=== PATIENT | female | born 1950 | race American Indian/Alaskan Native ===

== ENCOUNTER 2016-07-31 12:13 | Outpatient (CLI) | payer MEDICARE | END 2016-07-31 12:14 | disposition home or self-care (01) | LOC: CARD 12:13 | PROVIDERS: ATTEND Internal Medicine | DX: R07.9 Chest pain, unspecified (principal) | CPT/HCPCS: 93005; 93010 ==

== ENCOUNTER 2019-04-27 12:41 | Inpatient (IN) | payer MEDICARE ==
[2019-04-27 14:51] LABS: Basophils # (Auto) 0.1 K/mm3 (0.0-0.1); Eosinophils # (Auto) 0.1 K/mm3 (0.0-0.4); Eosinophils % (Auto) 1.5 % (0.0-4.3); Hematocrit 46.5 % (30.3-42.9); Lymphocytes # (Auto) 4.3 K/mm3 (1.2-5.4); Lymphocytes % (Auto) 45.4 % (13.4-35.0); Mean Corpuscular HGB Conc 32 % (30-34); Mean Corpuscular Volume 86 fl (79-97); Monocytes # (Auto) 0.7 K/mm3 (0.0-0.8); Monocytes % (Auto) 7.6 % (0.0-7.3); Platelet Count 187 K/mm3 (140-440); Red Blood Count 5.41 M/mm3 (3.65-5.03); Red Cell Distribution Width 13.9 % (13.2-15.2)
[2019-04-27 15:08] LABS: Alanine Aminotransferase 25 units/L (7-56); Albumin 4.6 g/dL (3.9-5); BUN/Creatinine Ratio 20; Blood Urea Nitrogen 20 mg/dL (7-17); Calcium 9.5 mg/dL (8.4-10.2); Hemolysis Index 13
--- NOTE | 2019-04-27 15:16 | XRay Report ---
CHEST 2 VIEWS INDICATION / CLINICAL INFORMATION: R/O PNEUMONIA. COMPARISON: None available. FINDINGS: SUPPORT DEVICES: None. HEART / MEDIASTINUM: No significant abnormality. LUNGS / PLEURA: No significant pulmonary or pleural abnormality. No pneumothorax. ADDITIONAL FINDINGS: No significant additional findings. IMPRESSION: 1. No acute findings. Signer Name: Wilmar Talbot MD Signed: 04/27/2019 3:11 PM Workstation Name: [id number]
[2019-04-27] MEDS: IPRATROPIUM/ALBUTEROL SULFATE 3 ML AMPUL.NEB IH SCH ×2 (17:39→20:41)
[2019-04-27] MEDS ORDERED: IBUPROFEN 800 MG TAB PO PRN (19:06)
[2019-04-27] MEDS ORDERED: ACETAMINOPHEN 325 MG TAB PO PRN (19:09)
[2019-04-27] MEDS ORDERED: ONDANSETRON 4 MG/2 ML INJ IV PRN ×2 (19:09→19:12)
[2019-04-27] MEDS: cefTRIAXone/NS 2 GM/100 ML 2 GM/100 ML BAG IV SCH (19:21)
[2019-04-27] MEDS: HYDROmorphone 1 MG/1 ML INJ IV PRN ×2 (19:27→22:38)
[2019-04-27] MEDS ORDERED: ALBUTEROL 2.5 MG/3 ML NEBU IH PRN (20:46)
[2019-04-27] MEDS ORDERED: cloNIDine 0.2 MG TAB PO SCH (22:00)
[2019-04-27] MEDS: AZITHROMYCIN 500 MG in SODIUM CHLORIDE 0.9% 250ML 250 ML IV SCH (22:27)
[2019-04-27] MEDS: NICOTINE 14 MG/24 HR PATCH TD SCH (22:31)
[2019-04-27] MEDS: ALPRAZolam 0.5 MG TAB PO SCH (22:31)
[2019-04-27] MEDS: FAMOTIDINE 20 MG TAB PO SCH (22:32)
[2019-04-27] MEDS: CYCLOBENZAPRINE 10 MG TAB PO PRN (22:32)
[2019-04-27] MEDS: cloNIDine 0.2 MG TAB PO SCH ×2 (22:51→23:01)
--- NOTE | 2019-04-28 09:04 | History and Physical Report ---
History of Present Illness Date of examination: 04/27/19 Date of admission: 04/27/19 13:32 Chief complaint: Fever and cough for 1 week History of present illness: Admittewd from office for Cough and fever of 1 week not responding to Outpatient treatment Past History Past Medical History: hypertension, hyperlipidemia Past Surgical History: No surgical history Social history: lives with family, smoking, full code Family history: hypertension Medications and Allergies Allergies Allergy/AdvReac Type Severity Reaction Status Date / Time No Known Allergies Allergy Verified 08/17/14 13:25 Home Medications Medication Instructions Recorded Confirmed Last Taken Type Acetaminophen/Codeine 1 tab PO Q6H PRN #14 tab 08/17/14 04/27/19 04/27/19 08:00 Rx [Acetaminophen-Codeine #3 TAB] Cyclobenzaprine [Flexeril 10mg] 10 mg PO TID PRN #20 tablet 08/17/14 04/27/19 Unknown Rx Ibuprofen [Motrin] 800 mg PO Q8HR PRN 04/27/19 04/27/19 04/27/19 08:00 History Spironolactone [Aldactone] 200 mg PO QDAY 04/27/19 04/27/19 04/27/19 08:00 History Verapamil ER [Calan Sr] 240 mg PO DAILY 04/27/19 04/27/19 04/27/19 08:00 History cloNIDine [Catapres] 0.2 mg PO BID 04/27/19 04/27/19 04/27/19 08:00 History Estrogen,Lindy/Me-Testosterone 1 each PO DAILY 04/28/19 04/28/19 04/27/19 08:00 History [Estrogen-Methyltestos F.s. Tab] Active Meds: Active Medications Acetaminophen (Tylenol) 650 mg PO Q4H PRN PRN Reason: Pain MILD(1-3)/Fever >100.5/HEART Acetaminophen/Codeine Phosphate (Tylenol #3) 1 tab PO Q4H PRN PRN Reason: Pain, Moderate (4-6) Albuterol (Proventil) 2.5 mg IH Q4HRT PRN PRN Reason: Shortness Of Breath Albuterol/Ipratropium (Duoneb *Not For Prn Use*) 1 ampul IH QIDRT [facility] Last Admin: 04/27/19 20:41 Dose: 1 ampul Documented by: Alprazolam (Xanax) 0.5 mg PO BID [facility] Last Admin: 04/27/19 22:31 Dose: 0.5 mg Documented by: Clonidine HCl (Catapres) 0.2 mg PO Q8H [facility] Last Admin: 04/27/19 23:01 Dose: 0.2 mg Documented by: Cyclobenzaprine HCl (Flexeril) 10 mg PO TID PRN PRN Reason: Muscle Spasm Last Admin: 04/27/19 22:32 Dose: 10 mg Documented by: Enoxaparin Sodium (Enoxaparin) 40 mg SUB-Q QDAY [facility] Famotidine (Pepcid) 20 mg PO BID [facility] Last Admin: 04/27/19 22:32 Dose: 20 mg Documented by: Hydromorphone HCl (Dilaudid) 1 mg IV Q3H PRN PRN Reason: Pain , Severe (7-10) Last Admin: 04/27/19 22:38 Dose: 1 mg Documented by: Ceftriaxone Sodium (Rocephin/Ns 2 Gm/100 Ml) 2 gm in 100 mls @ 200 mls/hr IV Q24HR [facility]; Protocol Last Admin: 04/27/19 19:21 Dose: 200 mls/hr Documented by: Azithromycin 500 mg/ Sodium (Chloride) 250 mls @ 250 mls/hr IV Q24HR [facility]; Protocol Stop: 05/01/19 10:59 Last Admin: 04/27/19 22:27 Dose: 250 mls/hr Documented by: Nicotine (Habitrol) 14 mg TD QDAY [facility] Last Admin: 04/27/19 22:31 Dose: 14 mg Documented by: Ondansetron HCl (Zofran) 4 mg IV Q3H PRN PRN Reason: Nausea And Vomiting Sodium Chloride (Sodium Chloride Flush Syringe 10 Ml) 10 ml IV BID [facility] Last Admin: 04/27/19 22:40 Dose: 10 ml Documented by: Sodium Chloride (Sodium Chloride Flush Syringe 10 Ml) 10 ml IV PRN PRN PRN Reason: LINE FLUSH Sodium Chloride (Sodium Chloride Flush Syringe 10 Ml) 10 ml IV BID [facility] Sodium Chloride (Sodium Chloride Flush Syringe 10 Ml) 10 ml IV PRN PRN PRN Reason: LINE FLUSH Spironolactone (Aldactone) 200 mg PO QDAY [facility] Verapamil HCl (Calan Sr) 240 mg PO DAILY [facility] Review of Systems All systems: negative Cardiovascular: shortness of breath, dyspnea on exertion Respiratory: cough, cough with sputum, dyspnea on exertion, congestion, wheezing Exam - Constitutional Vitals: Temp Pulse Resp BP Pulse Ox 97.9 F 82 20 129/72 97 04/28/19 01:53 04/28/19 01:53 04/28/19 01:53 04/28/19 01:53 04/28/19 01:53 General appearance: Present: no acute distress, mild distress, well-nourished - EENT Eyes: Present: PERRL ENT: hearing intact, clear oral mucosa - Neck Neck: Present: supple, normal ROM - Respiratory Respiratory effort: normal Respiratory: bilateral: diminished, rhonchi, wheezing - Cardiovascular Heart rate: 88 Rhythm: regular Heart Sounds: Present: S1 & S2. Absent: rub, click - Extremities Extremities: pulses symmetrical, No edema Peripheral Pulses: within normal limits - Abdominal General gastrointestinal: Present: soft, non-tender, non-distended, normal bowel sounds Female genitourinary: Present: normal - Integumentary Integumentary: Present: clear, warm, dry - Musculoskeletal Musculoskeletal: gait normal, strength equal bilaterally - Psychiatric Psychiatric: appropriate mood/affect, intact judgment & insight - Neurologic Neurologic: CNII-XII intact, moves all extremities Results - Labs CBC & Chem 7: 04/27/19 14:15 04/27/19 14:15 Labs: Laboratory Last Values WBC 9.5 K/mm3 (4.5-11.0) 04/27/19 14:15 RBC 5.41 M/mm3 (3.65-5.03) H 04/27/19 14:15 Hgb 15.0 gm/dl (10.1-14.3) H 04/27/19 14:15 Hct 46.5 % (30.3-42.9) H 04/27/19 14:15 MCV 86 fl (79-97) 04/27/19 14:15 MCH 28 pg (28-32) 04/27/19 14:15 MCHC 32 % (30-34) 04/27/19 14:15 RDW 13.9 % (13.2-15.2) 04/27/19 14:15 Plt Count 187 K/mm3 (140-440) 04/27/19 14:15 Lymph % (Auto) 45.4 % (13.4-35.0) H 04/27/19 14:15 [place] % (Auto) 7.6 % (0.0-7.3) H 04/27/19 14:15 Eos % (Auto) 1.5 % (0.0-4.3) 04/27/19 14:15 Baso % (Auto) 1.0 % (0.0-1.8) 04/27/19 14:15 Lymph # 4.3 K/mm3 (1.2-5.4) 04/27/19 14:15 [place] # 0.7 K/mm3 (0.0-0.8) 04/27/19 14:15 Eos # 0.1 K/mm3 (0.0-0.4) 04/27/19 14:15 Baso # 0.1 K/mm3 (0.0-0.1) 04/27/19 14:15 Seg Neutrophils % 44.5 % (40.0-70.0) 04/27/19 14:15 Seg Neutrophils # 4.2 K/mm3 (1.8-7.7) 04/27/19 14:15 Sodium 136 mmol/L (137-145) L 04/27/19 14:15 Potassium 4.4 mmol/L (3.6-5.0) 04/27/19 14:15 Chloride 100.9 mmol/L (98-107) 04/27/19 14:15 Carbon Dioxide 21 mmol/L (22-30) L 04/27/19 14:15 Anion Gap 19 mmol/L 04/27/19 14:15 BUN 20 mg/dL (7-17) H 04/27/19 14:15 Creatinine 1.0 mg/dL (0.7-1.2) 04/27/19 14:15 Estimated GFR > 60 ml/min 04/27/19 14:15 BUN/Creatinine Ratio 20 % 04/27/19 14:15 Glucose 91 mg/dL (65-100) 04/27/19 14:15 Calcium 9.5 mg/dL (8.4-10.2) 04/27/19 14:15 Total Bilirubin 0.20 mg/dL (0.1-1.2) 04/27/19 14:15 AST 26 units/L (5-40) 04/27/19 14:15 ALT 25 units/L (7-56) 04/27/19 14:15 Alkaline Phosphatase 111 units/L (35-129) 04/27/19 14:15 Total Protein 7.6 g/dL (6.3-8.2) 04/27/19 14:15 Albumin 4.6 g/dL (3.9-5) 04/27/19 14:15 Albumin/Globulin Ratio 1.5 % 04/27/19 14:15 - Imaging and Cardiology Chest x-ray: report reviewed Assessment and Plan Advance Directives: Yes (Full code) - Patient Problems (1) Pneumonia Current Visit: Yes Status: Acute Qualifiers: Lung location: unspecified part of lung Plan to address problem: Iv abx (2) COPD exacerbation Current Visit: Yes Status: Acute Plan to address problem: On nebs Steroids And Abx (3) SIRS (systemic inflammatory response syndrome) Current Visit: Yes Status: Acute Plan to address problem: IV abx (4) HTN (hypertension) Current Visit: Yes Status: Chronic Qualifiers: Hypertension type: essential hypertension Qualified Code(s): I10 - Essential (primary) hypertension Plan to address problem: Cont antihypertensives (5) DVT prophylaxis Current Visit: Yes Status: Acute Plan to address problem: on Heparin
[2019-04-28] MEDS: IPRATROPIUM/ALBUTEROL SULFATE 3 ML AMPUL.NEB IH SCH ×4 (09:18→20:01)
[2019-04-28] MEDS ORDERED: SPIRONOLACTONE 200 MG PO SCH (10:00)
[2019-04-28] MEDS: HYDROmorphone 1 MG/1 ML INJ IV PRN ×2 (11:21→21:08)
[2019-04-28] MEDS: cefTRIAXone/NS 2 GM/100 ML 2 GM/100 ML BAG IV SCH (11:22)
[2019-04-28] MEDS: AZITHROMYCIN 500 MG in SODIUM CHLORIDE 0.9% 250ML 250 ML IV SCH (11:23)
[2019-04-28] MEDS: ENOXAPARIN 40 MG/0.4 ML INJ SUB-Q SCH ×2 (11:25→16:17)
[2019-04-28] MEDS: VERAPAMIL ER 240 MG TAB PO SCH ×2 (11:25→16:18)
[2019-04-28] MEDS: ALPRAZolam 0.5 MG TAB PO SCH ×2 (11:26→21:05)
[2019-04-28] MEDS: NICOTINE 14 MG/24 HR PATCH TD SCH (11:26)
[2019-04-28] MEDS: SPIRONOLACTONE 50 MG TAB PO SCH (11:26)
[2019-04-28] MEDS: FAMOTIDINE 20 MG TAB PO SCH ×2 (11:26→21:06)
[2019-04-28] MEDS: cloNIDine 0.2 MG TAB PO SCH ×3 (11:27→21:06)
[2019-04-28] MEDS: CYCLOBENZAPRINE 10 MG TAB PO PRN ×2 (13:42→19:03)
[2019-04-28] MEDS: ACETAMINOPHEN W/CODEINE 300-30 MG TAB PO PRN ×2 (13:42→18:59)
--- NOTE | 2019-04-28 16:19 | Progress Note ---
Assessment and Plan - Patient Problems (1) Pneumonia Current Visit: Yes Status: Acute Qualifiers: Lung location: unspecified part of lung Plan to address problem: IB abx (2) COPD exacerbation Current Visit: Yes Status: Acute Plan to address problem: On nebs Steroids And Abx (3) SIRS (systemic inflammatory response syndrome) Current Visit: Yes Status: Acute Subjective Date of service: 04/28/19 Principal diagnosis: Copd exacerbation Interval history: Symptomatically better.,C/o vaginal itching sec to Abx Objective - Constitutional Vitals: Vital Signs - 12hr 04/28/19 04/28/19 04/28/19 07:52 09:10 10:00 Temperature 97.8 F Pulse Rate 72 72 Pulse Rate [ 76 Posterior Bilateral Throughout] Respiratory 20 Rate Respiratory 18 Rate [Posterior Bilateral Throughout] Blood Pressure 116/76 O2 Sat by Pulse 100 Oximetry 04/28/19 13:43 Temperature 97.8 F Pulse Rate 76 Pulse Rate [ Posterior Bilateral Throughout] Respiratory 18 Rate Respiratory Rate [Posterior Bilateral Throughout] Blood Pressure 129/68 O2 Sat by Pulse 96 Oximetry General appearance: Present: no acute distress, well-nourished - EENT Eyes: PERRL, EOM intact ENT: hearing intact, clear oral mucosa Ears: bilateral: normal - Neck Neck: supple, normal ROM - Respiratory Respiratory effort: normal Respiratory: bilateral: CTA - Breasts Breasts: normal - Cardiovascular Rhythm: regular Heart Sounds: Present: S1 & S2. Absent: gallop, rub Extremities: pulses intact, No edema, normal color, Full ROM - Gastrointestinal General gastrointestinal: Present: soft, non-tender, non-distended, normal bowel sounds - Genitourinary Female genitourinary: normal - Integumentary Integumentary: clear, warm, dry - Musculoskeletal Musculoskeletal: 1, strength equal bilaterally - Neurologic Neurologic: moves all extremities - Psychiatric Psychiatric: memory intact, appropriate mood/affect, intact judgment & insight - Labs CBC & Chem 7: 04/27/19 14:15 04/27/19 14:15
[2019-04-28] MEDS: methylPREDNISolone Sod Succinate 125 MG/2 ML INJ IV SCH ×2 (19:00→21:03)
[2019-04-28] MEDS: guaiFENesin ER 600 MG TAB PO SCH (21:05)
[2019-04-29] MEDS: HYDROmorphone 1 MG/1 ML INJ IV PRN ×4 (02:19→20:32)
[2019-04-29] MEDS: guaiFENesin ER 600 MG TAB PO SCH ×2 (10:07→23:12)
[2019-04-29] MEDS: ENOXAPARIN 40 MG/0.4 ML INJ SUB-Q SCH (10:07)
[2019-04-29] MEDS: NICOTINE 14 MG/24 HR PATCH TD SCH (10:08)
[2019-04-29] MEDS: VERAPAMIL ER 240 MG TAB PO SCH (10:08)
[2019-04-29] MEDS: SPIRONOLACTONE 50 MG TAB PO SCH (10:08)
[2019-04-29] MEDS: ALPRAZolam 0.5 MG TAB PO SCH ×2 (10:09→23:11)
[2019-04-29] MEDS: FAMOTIDINE 20 MG TAB PO SCH ×2 (10:09→23:11)
[2019-04-29] MEDS: cefTRIAXone/NS 2 GM/100 ML 2 GM/100 ML BAG IV SCH (10:11)
[2019-04-29] MEDS: methylPREDNISolone Sod Succinate 125 MG/2 ML INJ IV SCH ×3 (10:12→23:12)
[2019-04-29] MEDS: AZITHROMYCIN 500 MG in SODIUM CHLORIDE 0.9% 250ML 250 ML IV SCH (11:40)
[2019-04-29] MEDS: cloNIDine 0.2 MG TAB PO SCH ×3 (13:53→23:10)
[2019-04-29] MEDS ORDERED: ESTROGEN ESTER PO SCH (18:45)
[2019-04-29] MEDS ORDERED: [UNRECOGNIZED DRUG - OTHER] PO SCH (18:45)
[2019-04-29] MEDS ORDERED: TESTOSTERONE PO SCH (18:45)
[2019-04-29] MEDS ORDERED: FLUCONAZOLE 200 MG 200 MG/100 ML BAG IV SCH (19:00)
[2019-04-30] MEDS: HYDROmorphone 1 MG/1 ML INJ IV PRN ×2 (00:59→07:39)
[2019-04-30] MEDS: cloNIDine 0.2 MG TAB PO SCH ×2 (05:33→16:42)
[2019-04-30] MEDS: methylPREDNISolone Sod Succinate 125 MG/2 ML INJ IV SCH (05:34)
--- NOTE | 2019-04-30 07:36 | Progress Note ---
Assessment and Plan - Patient Problems (1) Pneumonia Current Visit: Yes Status: Acute Qualifiers: Lung location: unspecified part of lung Plan to address problem: Iv abx (2) COPD exacerbation Current Visit: Yes Status: Acute Plan to address problem: On nebs Steroids And Abx (3) SIRS (systemic inflammatory response syndrome) Current Visit: Yes Status: Acute Plan to address problem: IV abx (4) HTN (hypertension) Current Visit: Yes Status: Chronic Qualifiers: Hypertension type: essential hypertension Qualified Code(s): I10 - Essential (primary) hypertension Plan to address problem: Cont antihypertensives (5) Vaginal candidiasis Current Visit: Yes Status: Acute Plan to address problem: On Diflucan (6) Discharge planning issues Current Visit: Yes Status: Acute Plan to address problem: For possible dischare tomorrow (7) DVT prophylaxis Current Visit: Yes Status: Acute Plan to address problem: on Heparin Subjective Date of service: 04/29/19 Principal diagnosis: COPD exacerbation Interval history: Symptomatically better.,C/o vaginal itching sec to Abx Objective - Constitutional Vitals: Vital Signs - 12hr 04/29/19 04/29/19 04/29/19 20:21 22:00 23:09 Temperature 97.5 F L Pulse Rate 80 80 80 Respiratory 18 Rate Blood Pressure 150/77 150/77 O2 Sat by Pulse 97 Oximetry 04/29/19 04/30/19 04/30/19 23:10 03:18 05:33 Temperature 98.7 F Pulse Rate 80 81 81 Respiratory 20 Rate Blood Pressure 150/77 171/89 171/89 O2 Sat by Pulse 100 Oximetry General appearance: Present: mild distress, well-nourished - EENT Eyes: PERRL, EOM intact ENT: hearing intact, clear oral mucosa Ears: bilateral: normal - Neck Neck: supple, normal ROM - Respiratory Respiratory effort: normal Respiratory: bilateral: CTA, rales, rhonchi - Breasts Breasts: normal - Cardiovascular Rhythm: regular Heart Sounds: Present: S1 & S2. Absent: gallop, rub Extremities: pulses intact, No edema, normal color, Full ROM - Gastrointestinal General gastrointestinal: Present: soft, non-tender, non-distended, normal bowel sounds - Genitourinary Female genitourinary: normal - Integumentary Integumentary: clear, warm, dry - Musculoskeletal Musculoskeletal: 1, strength equal bilaterally - Neurologic Neurologic: moves all extremities - Psychiatric Psychiatric: memory intact, appropriate mood/affect, intact judgment & insight - Labs CBC & Chem 7: 04/27/19 14:15 04/27/19 14:15
[2019-04-30] MEDS ORDERED: methylPREDNISolone Sod Succinate 125 MG/2 ML INJ IV SCH (07:48)
[2019-04-30] MEDS ORDERED: hydrALAZINE 20 MG/1 ML INJ IV PRN (08:00)
[2019-04-30] MEDS: AZITHROMYCIN 500 MG in SODIUM CHLORIDE 0.9% 250ML 250 ML IV SCH (10:39)
[2019-04-30] MEDS: cefTRIAXone/NS 2 GM/100 ML 2 GM/100 ML BAG IV SCH (10:40)
[2019-04-30] MEDS: ENOXAPARIN 40 MG/0.4 ML INJ SUB-Q SCH (10:45)
[2019-04-30] MEDS: SPIRONOLACTONE 50 MG TAB PO SCH (10:45)
[2019-04-30] MEDS: ALPRAZolam 0.5 MG TAB PO SCH (10:45)
[2019-04-30] MEDS: guaiFENesin ER 600 MG TAB PO SCH (10:46)
[2019-04-30] MEDS: NICOTINE 14 MG/24 HR PATCH TD SCH (10:46)
[2019-04-30] MEDS: VERAPAMIL ER 240 MG TAB PO SCH (10:46)
[2019-04-30] MEDS: FAMOTIDINE 20 MG TAB PO SCH (10:48)
[2019-04-30] MEDS ORDERED: methylPREDNISolone Sod Succinate 40 MG/1 ML INJ IV SCH (14:00)
[2019-04-30] MEDS ORDERED: hydrALAZINE 10 MG TAB PO SCH (14:00)
--- NOTE | 2019-04-30 15:43 | Progress Note ---
Hospitalist Physical - Constitutional Vitals: Temp Pulse Resp BP Pulse Ox 98.2 F 76 18 130/60 92 04/30/19 07:31 04/30/19 10:46 04/30/19 07:31 04/30/19 10:46 04/30/19 07:31 General appearance: Present: no acute distress, well-nourished Results - Labs CBC & Chem 7: 04/27/19 14:15 04/27/19 14:15 Labs: Laboratory Last Values WBC 9.5 K/mm3 (4.5-11.0) 04/27/19 14:15 RBC 5.41 M/mm3 (3.65-5.03) H 04/27/19 14:15 Hgb 15.0 gm/dl (10.1-14.3) H 04/27/19 14:15 Hct 46.5 % (30.3-42.9) H 04/27/19 14:15 MCV 86 fl (79-97) 04/27/19 14:15 MCH 28 pg (28-32) 04/27/19 14:15 MCHC 32 % (30-34) 04/27/19 14:15 RDW 13.9 % (13.2-15.2) 04/27/19 14:15 Plt Count 187 K/mm3 (140-440) 04/27/19 14:15 Lymph % (Auto) 45.4 % (13.4-35.0) H 04/27/19 14:15 [place] % (Auto) 7.6 % (0.0-7.3) H 04/27/19 14:15 Eos % (Auto) 1.5 % (0.0-4.3) 04/27/19 14:15 Baso % (Auto) 1.0 % (0.0-1.8) 04/27/19 14:15 Lymph # 4.3 K/mm3 (1.2-5.4) 04/27/19 14:15 [place] # 0.7 K/mm3 (0.0-0.8) 04/27/19 14:15 Eos # 0.1 K/mm3 (0.0-0.4) 04/27/19 14:15 Baso # 0.1 K/mm3 (0.0-0.1) 04/27/19 14:15 Seg Neutrophils % 44.5 % (40.0-70.0) 04/27/19 14:15 Seg Neutrophils # 4.2 K/mm3 (1.8-7.7) 04/27/19 14:15 Sodium 136 mmol/L (137-145) L 04/27/19 14:15 Potassium 4.4 mmol/L (3.6-5.0) 04/27/19 14:15 Chloride 100.9 mmol/L (98-107) 04/27/19 14:15 Carbon Dioxide 21 mmol/L (22-30) L 04/27/19 14:15 Anion Gap 19 mmol/L 04/27/19 14:15 BUN 20 mg/dL (7-17) H 04/27/19 14:15 Creatinine 1.0 mg/dL (0.7-1.2) 04/27/19 14:15 Estimated GFR > 60 ml/min 04/27/19 14:15 BUN/Creatinine Ratio 20 % 04/27/19 14:15 Glucose 91 mg/dL (65-100) 04/27/19 14:15 Calcium 9.5 mg/dL (8.4-10.2) 04/27/19 14:15 Total Bilirubin 0.20 mg/dL (0.1-1.2) 04/27/19 14:15 AST 26 units/L (5-40) 04/27/19 14:15 ALT 25 units/L (7-56) 04/27/19 14:15 Alkaline Phosphatase 111 units/L (35-129) 04/27/19 14:15 Total Protein 7.6 g/dL (6.3-8.2) 04/27/19 14:15 Albumin 4.6 g/dL (3.9-5) 04/27/19 14:15 Albumin/Globulin Ratio 1.5 % 04/27/19 14:15 Active Medications - Current Medications Current Medications: Generic Name Dose Route Start Last Admin Trade Name Freq PRN Reason Stop Dose Admin Acetaminophen 650 mg 04/27/19 19:09 Tylenol PO Q4H PRN Pain MILD(1-3)/Fever >100.5/HEART Acetaminophen/Codeine Phosphate 1 tab 04/27/19 19:19 04/28/19 18:59 Tylenol #3 PO 1 tab Q4H PRN Administration Pain, Moderate (4-6) Albuterol 2.5 mg 04/27/19 20:46 Proventil IH Q4HRT PRN Shortness Of Breath Alprazolam 0.5 mg 04/27/19 22:00 04/30/19 10:45 Xanax PO 0.5 mg BID [facility] Administration Clonidine HCl 0.2 mg 04/27/19 14:00 04/30/19 05:33 Catapres PO 0.2 mg Q8H [facility] Administration Cyclobenzaprine HCl 10 mg 04/27/19 19:06 04/28/19 19:03 Flexeril PO 10 mg TID PRN Administration Muscle Spasm Enoxaparin Sodium 40 mg 04/27/19 17:00 04/30/19 10:45 Enoxaparin SUB-Q 40 mg QDAY [facility] Administration Famotidine 20 mg 04/27/19 22:00 04/30/19 10:48 Pepcid PO 20 mg BID [facility] Administration Guaifenesin 600 mg 04/28/19 22:00 04/30/19 10:46 Mucinex Er PO 600 mg BID [facility] Administration Hydralazine HCl 10 mg 04/30/19 14:00 Apresoline PO Q8HR [facility] Hydralazine HCl 10 mg 04/30/19 08:00 Apresoline IV Q4H PRN Hypertension Hydromorphone HCl 1 mg 04/27/19 19:09 04/30/19 07:39 Dilaudid IV 1 mg Q3H PRN Administration Pain , Severe (7-10) Ceftriaxone Sodium 2 gm in 100 mls @ 200 mls/hr 04/27/19 14:00 04/30/19 10:40 Rocephin/Ns 2 Gm/100 Ml IV 05/01/19 23:59 200 mls/hr Q24HR [facility] Administration Protocol Azithromycin 500 mg/ Sodium 250 mls @ 250 mls/hr 04/27/19 16:00 04/30/19 10:39 Chloride IV 05/01/19 10:59 250 mls/hr Q24HR [facility] Administration Protocol Methylprednisolone Sodium Succinate 40 mg 04/30/19 14:00 Solu-Medrol IV Q8HR [facility] Miscellaneous Medication 1 each 04/29/19 18:45 Estrogen,Lindy/Me-Testosterone [Estrogen-Methyltestos F.S. Tab] PO DAILY [facility] Nicotine 14 mg 04/27/19 20:00 04/30/19 10:46 Habitrol TD 14 mg QDAY [facility] Administration Ondansetron HCl 4 mg 04/27/19 19:12 Zofran IV Q3H PRN Nausea And Vomiting Sodium Chloride 10 ml 04/27/19 22:00 04/30/19 10:47 Sodium Chloride Flush Syringe 10 Ml IV 10 ml BID [facility] Administration Sodium Chloride 10 ml 04/27/19 19:09 Sodium Chloride Flush Syringe 10 Ml IV PRN PRN LINE FLUSH Spironolactone 200 mg 04/28/19 10:00 04/30/19 10:45 Aldactone PO 200 mg QDAY [facility] Administration Verapamil HCl 240 mg 04/27/19 20:00 04/30/19 10:46 Calan Sr PO 240 mg DAILY [facility] Administration
--- NOTE | 2019-04-30 16:03 | Discharge Summary ---
Providers - Providers Date of Admission: 04/27/19 13:32 Date of discharge: 04/30/19 Attending physician: VERNOIKA PERRIN 04/28/19 13:14 Physical Therapy Evaluation and Treat [CONS] Routine Comment: Reason For Exam: Weakness Primary care physician: UMM SAVAGE Hospitalization Reason for admission: Worsening shortness of breath/cough congestion/vaginal itching Pertinent studies: Chest x-ray CT right lower extremity Hospital course: 68-year-old female patient was admitted with cough congestion and vaginal itch ing Patient was initially evaluated noted to have community-acquired pneumonia placed on empiric antibiotics As well as nebulizers tapering dose of IV steroids and Diflucan Patient symptoms slowly but gradually improved Today patient is comfortable no new complaints Shortness of breath slightly improved, vital signs stable Being discharged on oral antibiotics tapering dose of steroids and cough me dicine Also advised to continue her home medications as directed Patient is stable at discharge Discharge diagnosis: --Pneumonia/community-acquired Current Visit: Yes Status: Acute Iv abx, chest negative to date Discharged on oral antibiotics -- COPD exacerbation Current Visit: Yes Status: Acute On nebs Steroids And Abx -- SIRS (systemic inflammatory response syndrome) Current Visit: Yes Status: Acute IV abx --HTN (hypertension) Current Visit: Yes Status: Chronic Cont antihypertensives -- Vaginal candidiasis Current Visit: Yes Status: Acute On Diflucan --Discharge planning issues Current Visit: Yes Status: Acute For possible dischare tomorrow -- DVT prophylaxis Current Visit: Yes Status: Acute on Heparin Patient is stable for discharge on oral antibiotics Bring dose of steroids cough medicine Advised to continue her home medications as instructed Stable at discharge Disposition: DC-01 TO HOME OR SELFCARE Time spent for discharge: 32 min Core Measure Documentation - Palliative Care Palliative Care/ Comfort Measures: Not Applicable - Core Measures Any of the following diagnoses?: none Exam - Constitutional Vitals: Temp Pulse Resp BP Pulse Ox 98.2 F 76 18 130/60 92 04/30/19 07:31 04/30/19 10:46 04/30/19 07:31 04/30/19 10:46 04/30/19 07:31 General appearance: Present: no acute distress, well-nourished - EENT Eyes: Present: PERRL, EOM intact - Neck Neck: Present: supple, normal ROM - Respiratory Respiratory effort: normal Respiratory: bilateral: diminished, negative: rales, rhonchi, wheezing - Cardiovascular Rhythm: regular Heart Sounds: Present: S1 & S2 - Extremities Extremities: no ischemia, No edema - Abdominal General gastrointestinal: Present: soft, non-tender, non-distended, normal bowel sounds - Integumentary Integumentary: Present: clear, warm - Musculoskeletal Musculoskeletal: strength equal bilaterally, generalized weakness - Psychiatric Psychiatric: cooperative Plan Activity: advance as tolerated, fall precautions Diet: low salt Additional Instructions: if you have severe shortness of breath or cough contact M.D. or go to emergency room. Dr. Savage will discuss with you pending CT hip report when available Follow up with: UMM SAVAGE MD [Primary Care Provider] - 7 Days Prescriptions: Nicotine [Habitrol] 14 mg TD QDAY #30 patch levoFLOXacin [Levaquin] 750 mg PO QDAY #5 tablet guaiFENesin ER [Mucinex ER] 600 mg PO BID #30 tablet Prednisone [predniSONE 10 mg (6-Day Pack, 21 Tabs)] 10 mg PO .TAPER #1 tab.ds.pk
[2019-04-30 16:42] VITALS: BP 136/88
--- NOTE | 2019-04-30 21:05 | Cat Scan Report ---
CT lower extremity RT wo/w con INDICATION / CLINICAL INFORMATION: Rt hip pain. TECHNIQUE: Noncontrast CT of the pelvis was performed before and after administration of intravenous contrast. A ll CT scans at this location are performed using CT dose reduction for ALARA by means of automated ex posure control. COMPARISON: None available. FINDINGS: Calcified gallbladder calculi are noted. The gallbladder is not abnormally distended, and there is no abnormal wall thickening in the visualized portion of the gallbladder. Visualized portions of the sp eris, pancreas, liver, kidneys, and gastrointestinal tract revealed no acute abnormality. No visualiz ed lymphadenopathy. No free fluid or organized fluid collection in the pelvis. The bladder is unremarkable. Atherosclerotic calcification is seen in the aorta, without aneurysmal dilatation. Degenerative disc disease and advanced facet arthrosis are present at the lower lumbar spine levels, but there is no acute skeletal abnormality. No significant changes of osteonecrosis of the hips. Mild , symmetric changes of sacroiliitis are present. Visualized muscles and their attachment points are i n the pelvis and hips are unremarkable. IMPRESSION: 1. Symmetric sacroiliitis. 2. Degenerative changes in the lumbar spine. 3. No acute skeletal abnormality. No significant osteoarthrosis in the hips. 4. Cholelithiasis incidentally noted. Signer Name: Sukhdev Walls MD Signed: 04/30/2019 9:00 PM Workstation Name: [id number]
== END 2019-04-30 17:05 | disposition home or self-care (01) | DRG 190 ==
LOC: 3A 12:41 → UNDOADMIN 12:41 → 2B-ACE 13:32
PROVIDERS: ADMIT Internal Medicine; ATTEND Internal Medicine
DX: J44.0 Chronic obstructive pulmonary disease with (acute) lower respiratory infection (principal); J18.9 Pneumonia, unspecified organism; R65.10 Systemic inflammatory response syndrome (SIRS) of non-infectious origin without acute organ dysfunction; J44.1 Chronic obstructive pulmonary disease with (acute) exacerbation; B37.3 Candidiasis of vulva and vagina; I10 Essential (primary) hypertension; Z82.49 Family history of ischemic heart disease and other diseases of the circulatory system; Z79.899 Other long term (current) drug therapy
CPT/HCPCS: 36415; 71046; 80053; 85025; 93005; 93010; 94640; G0378; J0456; J0696; J1170; J1450; J1650; J2405; J2920; J2930; J7050; Q9967

== ENCOUNTER 2021-12-20 13:43 | Outpatient (CLI) | payer MEDICARE ==
--- NOTE | 2021-12-21 08:41 | Electrocardiograph Report ---
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
== END 2021-12-20 13:44 | disposition home or self-care (01) ==
LOC: CARD 13:43
PROVIDERS: ATTEND Internal Medicine
DX: R07.9 Chest pain, unspecified (principal)
CPT/HCPCS: 93005